=== PATIENT | female | born 1995 | race Caucasian/White ===

== ENCOUNTER 2017-06-02 16:37 | Emergency (ER) | payer BC ==
--- NOTE | 2017-06-02 17:09 | ED ---
Extremity Problem HPI - General Chief complaint: Extremity Problem,Nontraumatic Stated complaint: Left Sided Numbness Time Seen by Provider: 06/02/17 16:57 Source: patient, RN notes reviewed, old records reviewed Mode of arrival: ambulatory Limitations: no limitations - History of Present Illness Initial comments: this patient is a 21-year-old female presents emergency room today chief complaint of left-sided numbness sensation over her entire body. She states that she was eating lunch and the sensation started in her hands. She reports that then traveled to her mouth, oral arm, chest and leg. She states that the numbness sensation is diminishing in her leg at this time but continues to feel shaky and have the sensation in her arms chest and face. Patient states that she can feel me touch her. She reports she feels shaky. Has history of hypoglycemia. Surgical history includes appendectomy and adenoidectomy. Patient states that she is on no current medications at this time. Denies any chance of as she states that she has a . Patient reports that she has no recent head injury. She denies any headache headache or neck pain, chest pain, shortness of breath, vomiting, abdominal pain. She does feel nauseated. - Related Data Home Medications Medication Instructions Recorded Confirmed Aspirin/Acetaminophen/Caffeine 2 tab PO BID PRN 06/03/17 06/03/17 [Excedrin Migraine Caplet] Allergies Allergy/AdvReac Type Severity Reaction Status Date / Time No Known Allergies Allergy Verified 06/03/17 16:45 Review of Systems ROS Statement: Those systems with pertinent positive or pertinent negative responses have been documented in the HPI. ROS Other: All systems not noted in ROS Statement are negative. Past Medical History Past Medical History: Asthma Additional Past Medical History / Comment(s): hypoglycemia History of Any Multi-Drug Resistant Organisms: None Reported Past Surgical History: Adenoidectomy, Appendectomy, Ear Surgery Additional Past Surgical History / Comment(s): ear tubes Past Psychological History: Anxiety Smoking Status: Current every day smoker Past Alcohol Use History: Occasional Past Drug Use History: None Reported General Exam - General Exam Comments Initial Comments: this patient is a 21-year-old female. No significant distress. Limitations: no limitations General appearance: alert, in no apparent distress Head exam: Present: atraumatic, normocephalic, normal inspection Eye exam: Present: normal appearance, PERRL, EOMI. Absent: scleral icterus, conjunctival injection, periorbital swelling ENT exam: Present: normal exam, mucous membranes moist Neck exam: Present: normal inspection. Absent: tenderness, meningismus, lymphadenopathy Respiratory exam: Present: normal lung sounds bilaterally. Absent: respiratory distress, wheezes, rales, rhonchi, stridor Cardiovascular Exam: Present: regular rate, normal rhythm, normal heart sounds. Absent: systolic murmur, diastolic murmur, rubs, gallop, clicks GI/Abdominal exam: Present: soft, normal bowel sounds. Absent: distended, tenderness, guarding, rebound, rigid Extremities exam: Present: normal inspection, full ROM, normal capillary refill. Absent: tenderness, pedal edema, joint swelling, calf tenderness Back exam: Present: normal inspection Neurological exam: Present: alert, oriented X3, CN II-XII intact Expanded Patient oriented to: Present: person, place, time Speech: Present: fluid speech Cranial nerves: EOM's Intact: Normal, Facial Sensation: Normal Cerebellar function: Finger to Nose: Normal Upper motor neuron: Pronator Drift: Normal Sensory exam: Upper Extremity Light Touch: Normal, Lower Extremity Light Touch: Normal Motor strength exam: RUE: 5, LUE: 5, RLE: 5, LLE: 5 Eye Response: (4) open spontaneously Motor Response: (6) obeys commands Verbal Response: (5) oriented [place] Total: 15 Psychiatric exam: Present: normal affect, normal mood Skin exam: Present: warm, dry, intact, normal color. Absent: rash Course Vital Signs 06/02/17 06/02/17 06/02/17 16:41 17:27 19:04 Temperature 98.1 F 97.2 F L Pulse Rate 84 82 92 Respiratory 20 18 18 Rate Blood Pressure 134/85 122/76 121/76 O2 Sat by Pulse 100 96 99 Oximetry Medical Decision Making - Medical Decision Making this patient is a 21-year-old female presents emergency room today chief complaint of left-sided numbness sensation over her entire body. Patient has no focal neurological deficits. SHe can feel me touch her. She was given work up and all labs were reviewed and normal, normal CT. Normal EKG. She had mild decrease in blood sugar at 70. Given orange juice. Patient informed that I have direct cause for her paresthesias at this time. Disucssed follow up with PCP and neurology. All questions answered and return parameters discussed. - Lab Data Result diagrams: 06/02/17 17:11 06/02/17 17:11 Lab Results 06/02/17 06/02/17 06/02/17 Range/Units 17:11 17:11 17:11 WBC 7.6 (4.0-11.0) k/uL RBC 4.80 (3.80-5.40) m/uL Hgb 15.0 (11.4-16.0) gm/dL Hct 45.3 (34.0-46.0) % MCV 94.2 (80.0-100.0) fL MCH 31.3 (25.0-35.0) pg MCHC 33.2 (31.0-37.0) g/dL RDW 12.4 (11.5-15.5) % Plt Count 248 (150-450) k/uL Neutrophils % 58 % Lymphocytes % 29 % Monocytes % 6 % Eosinophils % 5 % Basophils % 1 % Neutrophils # 4.4 (1.3-7.7) k/uL Lymphocytes # 2.2 (1.0-4.8) k/uL Monocytes # 0.4 (0-1.0) k/uL Eosinophils # 0.4 (0-0.7) k/uL Basophils # 0.1 (0-0.2) k/uL PT (9.0-12.0) sec INR (<1.2) APTT (22.0-30.0) sec Sodium (137-145) mmol/L Potassium (3.5-5.1) mmol/L Chloride (98-107) mmol/L Carbon Dioxide (22-30) mmol/L Anion Gap mmol/L BUN (7-17) mg/dL Creatinine (0.52-1.04) mg/dL Est GFR (MDRD) Af Amer (>60 ml/min/1.73 sqM) Est GFR (MDRD) Non-Af (>60 ml/min/1.73 sqM) Glucose (74-99) mg/dL POC Glucose (mg/dL) (75-99) mg/dL POC Glu Floor Person ID Estimated Ave Glu mg/dL 91 Hemoglobin A1c 4.8 (4.0-6.0) % Calcium (8.4-10.2) mg/dL Total Bilirubin (0.2-1.3) mg/dL AST (14-36) U/L ALT (9-52) U/L Alkaline Phosphatase (38-126) U/L Total Creatine Kinase 64 (30-135) U/L CK-MB (CK-2) <0.2 (0.0-2.4) ng/mL CK-MB (CK-2) Rel Index Troponin I <0.012 (0.000-0.034) ng/mL Total Protein (6.3-8.2) g/dL Albumin (3.5-5.0) g/dL Urine Color Urine Appearance (Clear) Urine pH (5.0-8.0) Ur Specific [place] (1.001-1.035) Urine Protein (Negative) Urine Glucose (UA) (Negative) Urine Ketones (Negative) Urine Blood (Negative) Urine Nitrite (Negative) Urine Bilirubin (Negative) Urine Urobilinogen (<2.0) mg/dL Ur Leukocyte Esterase (Negative) Urine HCG, Qual (Not Detectd) 06/02/17 06/02/17 06/02/17 Range/Units 17:11 17:11 17:26 WBC (4.0-11.0) k/uL RBC (3.80-5.40) m/uL Hgb (11.4-16.0) gm/dL Hct (34.0-46.0) % MCV (80.0-100.0) fL MCH (25.0-35.0) pg MCHC (31.0-37.0) g/dL RDW (11.5-15.5) % Plt Count (150-450) k/uL Neutrophils % % Lymphocytes % % Monocytes % % Eosinophils % % Basophils % % Neutrophils # (1.3-7.7) k/uL Lymphocytes # (1.0-4.8) k/uL Monocytes # (0-1.0) k/uL Eosinophils # (0-0.7) k/uL Basophils # (0-0.2) k/uL PT 10.7 (9.0-12.0) sec INR 1.1 (<1.2) APTT 25.3 (22.0-30.0) sec Sodium 142 (137-145) mmol/L Potassium 4.2 (3.5-5.1) mmol/L Chloride 104 (98-107) mmol/L Carbon Dioxide 27 (22-30) mmol/L Anion Gap 11 mmol/L BUN 14 (7-17) mg/dL Creatinine 0.80 (0.52-1.04) mg/dL Est GFR (MDRD) Af Amer >60 (>60 ml/min/1.73 sqM) Est GFR (MDRD) Non-Af >60 (>60 ml/min/1.73 sqM) Glucose 77 (74-99) mg/dL POC Glucose (mg/dL) 77 (75-99) mg/dL POC Glu Floor Person ID Richa James Estimated Ave Glu mg/dL Hemoglobin A1c (4.0-6.0) % Calcium 9.7 (8.4-10.2) mg/dL Total Bilirubin 0.6 (0.2-1.3) mg/dL AST 20 (14-36) U/L ALT 21 (9-52) U/L Alkaline Phosphatase 59 (38-126) U/L Total Creatine Kinase (30-135) U/L CK-MB (CK-2) (0.0-2.4) ng/mL CK-MB (CK-2) Rel Index Troponin I (0.000-0.034) ng/mL Total Protein 7.2 (6.3-8.2) g/dL Albumin 4.2 (3.5-5.0) g/dL Urine Color Urine Appearance (Clear) Urine pH (5.0-8.0) Ur Specific [place] (1.001-1.035) Urine Protein (Negative) Urine Glucose (UA) (Negative) Urine Ketones (Negative) Urine Blood (Negative) Urine Nitrite (Negative) Urine Bilirubin (Negative) Urine Urobilinogen (<2.0) mg/dL Ur Leukocyte Esterase (Negative) Urine HCG, Qual (Not Detectd) 06/02/17 06/02/17 Range/Units 18:40 18:40 WBC (4.0-11.0) k/uL RBC (3.80-5.40) m/uL Hgb (11.4-16.0) gm/dL Hct (34.0-46.0) % MCV (80.0-100.0) fL MCH (25.0-35.0) pg MCHC (31.0-37.0) g/dL RDW (11.5-15.5) % Plt Count (150-450) k/uL Neutrophils % % Lymphocytes % % Monocytes % % Eosinophils % % Basophils % % Neutrophils # (1.3-7.7) k/uL Lymphocytes # (1.0-4.8) k/uL Monocytes # (0-1.0) k/uL Eosinophils # (0-0.7) k/uL Basophils # (0-0.2) k/uL PT (9.0-12.0) sec INR (<1.2) APTT (22.0-30.0) sec Sodium (137-145) mmol/L Potassium (3.5-5.1) mmol/L Chloride (98-107) mmol/L Carbon Dioxide (22-30) mmol/L Anion Gap mmol/L BUN (7-17) mg/dL Creatinine (0.52-1.04) mg/dL Est GFR (MDRD) Af Amer (>60 ml/min/1.73 sqM) Est GFR (MDRD) Non-Af (>60 ml/min/1.73 sqM) Glucose (74-99) mg/dL POC Glucose (mg/dL) (75-99) mg/dL POC Glu Floor Person ID Estimated Ave Glu mg/dL Hemoglobin A1c (4.0-6.0) % Calcium (8.4-10.2) mg/dL Total Bilirubin (0.2-1.3) mg/dL AST (14-36) U/L ALT (9-52) U/L Alkaline Phosphatase (38-126) U/L Total Creatine Kinase (30-135) U/L CK-MB (CK-2) (0.0-2.4) ng/mL CK-MB (CK-2) Rel Index Troponin I (0.000-0.034) ng/mL Total Protein (6.3-8.2) g/dL Albumin (3.5-5.0) g/dL Urine Color Light Yellow Urine Appearance Clear (Clear) Urine pH 7.0 (5.0-8.0) Ur Specific [place] 1.013 (1.001-1.035) Urine Protein Negative (Negative) Urine Glucose (UA) Negative (Negative) Urine Ketones Negative (Negative) Urine Blood Negative (Negative) Urine Nitrite Negative (Negative) Urine Bilirubin Negative (Negative) Urine Urobilinogen <2.0 (<2.0) mg/dL Ur Leukocyte Esterase Negative (Negative) Urine HCG, Qual Not Detected (Not Detectd) 06/02/17 18:57 EKG shows normal sinus rhythm. Normal EKG noted. Ventricular rate 74 bpm. Once and 6 most seconds. QS duration 84 ms. QT QTc is 370/419 ms. No evidence of ST elevation or T-wave inversions. No evidence of atrial or ventricular arrhythmias. - Radiology Data Radiology results: report reviewed CXR is normal, CT brain is normal. Disposition Clinical Impression: Paresthesia Disposition: HOME SELF-CARE Condition: Good Instructions: Paresthesia (ED) Additional Instructions: Patient advised to follow-up with primary care physician and neurology. Return to the emergency department if any alarming signs or symptoms occur. Referrals: None,Stated [Primary Care Provider] - 1-2 days Indiana Roman MD [STAFF PHYSICIAN] - 1-2 days Ector Edmond MD [STAFF PHYSICIAN] - 1-2 days Time of Disposition: 19:41
[2017-06-02] MEDS ORDERED: SODIUM CHLORIDE 0.9% 1,000 ML IV STA (17:10)
[2017-06-02] MEDS ORDERED: LORazepam 2 MG/ML INJ IV STA (17:12)
[2017-06-02 17:26] LABS: Basophils # (A) 0.1 k/uL (0-0.2); Basophils % (A) 1 %; Eosinophils # (A) 0.4 k/uL (0-0.7); Eosinophils % (A) 5 %; HCT 45.3 % (34.0-46.0); Lymphocytes # (A) 2.2 k/uL (1.0-4.8); Lymphocytes % (A) 29 %; MCH 31.3 pg (25.0-35.0); MCHC 33.2 g/dL (31.0-37.0); MCV 94.2 fL (80.0-100.0); Mean Platelet Volume 8.1; Monocytes # (A) 0.4 k/uL (0-1.0); Monocytes % (A) 6 %; Neutrophils # (A) 4.4 k/uL (1.3-7.7); Neutrophils % (A) 58 %; Platelet Count 248 k/uL (150-450); RDW 12.4 % (11.5-15.5); WBC 7.6 k/uL (4.0-11.0)
[2017-06-02 17:28] VITALS: RESP 18
[2017-06-02 17:28] LABS: Glucose,Whole Blood 77 mg/dL (75-99)
[2017-06-02 17:36] LABS: INR 1.1 (<1.2); Partial Thromboplastin Time 25.3 sec (22.0-30.0); Prothrombin Time 10.7 sec (9.0-12.0)
[2017-06-02 17:38] LABS: ALT 21 U/L (9-52); AST 20 U/L (14-36); Albumin 4.2 g/dL (3.5-5.0); Alkaline Phosphatase 59 U/L (38-126); Anion Gap 11 mmol/L; Blood Urea Nitrogen 14 mg/dL (7-17); Calcium 9.7 mg/dL (8.4-10.2); Carbon Dioxide 27 mmol/L (22-30); Chloride 104 mmol/L (98-107); Glucose 77 mg/dL (74-99); Potassium 4.2 mmol/L (3.5-5.1); Sodium 142 mmol/L (137-145); Total Bilirubin 0.6 mg/dL (0.2-1.3); Total Protein 7.2 g/dL (6.3-8.2)
[2017-06-02 17:50] LABS: Creatine Kinase 64 U/L (30-135)
[2017-06-02 18:03] LABS: Creatine Kinase MB <0.2 ng/mL (0.0-2.4); Troponin I <0.012 ng/mL (0.000-0.034)
--- NOTE | 2017-06-02 19:01 | CT ---
EXAMINATION TYPE: CT brain wo con DATE OF EXAM: 06/02/2017 COMPARISON: NONE INDICATION: Patient complains of left side numbness. DLP: 782.6 mGycm, Automated exposure control for dose reduction was used. CONTRAST: None CT of the brain is performed utilizing 3 mm thick sections through the posterior fossa and 3 mm thick sections through the remaining calvarium. Study is performed within 24 hours of arrival to the hosp ital. No abnormal hyperdensity is present to suggest an acute intracranial hemorrhage. No mass lesion is evident. No acute infarcts are evident. Ventricles and sulci are appropriate for the patient age. Paranasal sinuses and mastoid air cells within the [id number] are clear. IMPRESSIONS: 1. Normal CT Brain
--- NOTE | 2017-06-02 19:02 | XR ---
EXAMINATION TYPE: XR chest 2V DATE OF EXAM: 06/02/2017 COMPARISON: NONE INDICATION: Left-sided numbness TECHNIQUE: Frontal and lateral views of the chest are obtained. FINDINGS: The heart size is normal. The pulmonary vasculature is normal. The lungs are clear. EKG leads overlie the chest. Nipple piercings are present bilaterally. IMPRESSION: 1. No acute pulmonary process.
[2017-06-02 19:05] VITALS: BP 121/76; PULSE 92; TEMP 97.2
[2017-06-02 19:31] LABS: Appearance,Urine Clear (Clear); Bilirubin,Urine Negative (Negative); Blood,Urine Negative (Negative); Color,Urine Light Yellow; Glucose,Urine (UA) Negative (Negative); Ketones,Urine Negative (Negative); Leukocyte Esterase,Urine Negative (Negative); Nitrite,Urine Negative (Negative); Protein,Urine Negative (Negative); Specific Gravity,Urine 1.013 (1.001-1.035); Urobilinogen,Urine <2.0 mg/dL (<2.0)
[2017-06-02 23:55] LABS: Hemoglobin A1C 4.8 % (4.0-6.0)
== END 2017-06-02 19:58 | disposition home or self-care (01) ==
LOC: EC 16:37
DX: R20.2 Paresthesia of skin (principal); R11.0 Nausea; F17.200 Nicotine dependence, unspecified, uncomplicated
CPT/HCPCS: 36415; 93005; 80053; 82550; 82553; 84484; 85025; 85610; 85730; 81003; 81025; 83036; 71046; 70450; 99285; 96374; 96361 ×3; J2060

== ENCOUNTER 2017-06-03 14:22 | Emergency (ER) | payer BC ==
[2017-06-03] MEDS ORDERED: METOCLOPRAMIDE 5 MG/ML 2 ML VIAL IVP STA (17:05)
[2017-06-03] MEDS ORDERED: diphenhydrAMINE 50 MG/ML 1 ML VIAL IVP STA (17:05)
[2017-06-03] MEDS ORDERED: SODIUM CHLORIDE 0.9% 1,000 ML IV STA (17:05)
[2017-06-03] MEDS ORDERED: DEXAMETHASONE SOD PHOSPHATE 10 MG/ML 1 ML VIAL IV STA (17:05)
--- NOTE | 2017-06-03 17:16 | ED ---
Headache HPI - General Chief Complaint: Headache Stated Complaint: headaches/trouble speaking/memory problems-revisit Time Seen by Provider: 06/03/17 16:48 Source: patient, family (Mother, boyfriend) Mode of arrival: ambulatory Limitations: no limitations - History of Present Illness Initial Comments: Patient presents with headache. Patient was seen in the ER yesterday for decreased sensation across most of her body, worse on the left side. Patient states she had experiencing headaches daily for the past one month. Mom notes her as well as patient's older sister both have a history of bad migraine headaches. Patient states she regular gets headaches which typically resolved with Pain. Patient states she had a headache for the past 2 hours today, took 2 Excedrin Migraine pills which almost completely resolved headache. Patient states she has experienced tingling and decreased sensation that started in her mouth, spread across her chest and legs, and then to the left side of her body. Patient states today with symptoms his having trouble remembering what shampoo or conditioner to use, having trouble seeing when using her cell phone. Patient denies sudden onset thunderclap headache, denies neck pain. Patient had CT of the head yesterday that was negative. Blood work yesterday was unremarkable, test was negative. Patient denies recent illness, fevers, chills, URI symptoms. +vomting x 1 today 2/2 REN. Complaint: headache - Related Data Home Medications Medication Instructions Recorded Confirmed Aspirin/Acetaminophen/Caffeine 2 tab PO BID PRN 06/03/17 06/03/17 [Excedrin Migraine Caplet] Allergies Allergy/AdvReac Type Severity Reaction Status Date / Time No Known Allergies Allergy Verified 06/03/17 16:45 Review of Systems ROS Statement: Those systems with pertinent positive or pertinent negative responses have been documented in the HPI. ROS Other: All systems not noted in ROS Statement are negative. Constitutional: Denies: fever, chills Eyes: Reports: vision change. Denies: eye pain ENT: Denies: ear pain, throat pain, hearing loss, congestion Respiratory: Denies: cough, dyspnea Cardiovascular: Denies: chest pain, syncope Endocrine: Denies: fatigue Gastrointestinal: Reports: nausea, vomiting. Denies: abdominal pain Genitourinary: Denies: dysuria, frequency Musculoskeletal: Denies: back pain Skin: Denies: rash, change in color Neurological: Reports: headache, paresthesias. Denies: weakness, numbness, vertigo Past Medical History Past Medical History: Asthma Additional Past Medical History / Comment(s): hypoglycemia, headaches. History of Any Multi-Drug Resistant Organisms: None Reported Past Surgical History: Adenoidectomy, Appendectomy, Ear Surgery Additional Past Surgical History / Comment(s): ear tubes Past Psychological History: Anxiety Smoking Status: Current every day smoker Past Alcohol Use History: Occasional Past Drug Use History: None Reported General Exam - General Exam Comments Initial Comments: Sitting up in bed. No acute distress. Well-groomed well-dressed. Well- appearing. Does not appear in pain. Lights on room, conversing normally. Calm , pleasant. Limitations: no limitations General appearance: alert, in no apparent distress Head exam: Present: atraumatic, normocephalic Eye exam: Present: normal appearance, PERRL, EOMI. Absent: scleral icterus, conjunctival injection, nystagmus, periorbital swelling, periorbital tenderness ENT exam: Present: normal exam, mucous membranes moist Neck exam: Present: normal inspection, full ROM. Absent: tenderness, meningismus, lymphadenopathy Respiratory exam: Present: normal lung sounds bilaterally. Absent: respiratory distress, wheezes, rales, rhonchi, stridor Cardiovascular Exam: Present: regular rate, normal rhythm GI/Abdominal exam: Present: soft. Absent: distended, tenderness, guarding, rebound Extremities exam: Present: normal inspection Neurological exam: Present: alert, oriented X3, CN II-XII intact, normal gait, other (Fingers to nose coronary bilaterally. [id number] coronary bilaterally. Pronator drift negative bilaterally. Pupils equal and reactive bilaterally. No focal neuro deficits on exam. Muscle strength 5 out of 5 in all extremities. Sensation is intact in all extremities.). Absent: motor sensory deficit Psychiatric exam: Present: normal affect, normal mood Skin exam: Present: warm, dry, intact, normal color. Absent: rash Course Vital Signs 06/03/17 14:50 Temperature 98.4 F Pulse Rate 83 Respiratory 18 Rate Blood Pressure 130/86 O2 Sat by Pulse 100 Oximetry Medical Decision Making - Medical Decision Making Patient had no significant abnormalities on lab workup from yesterday. CT head negative yesterday. Patient's symptoms and was completely resolved at this time, after taking Excedrin Migraine. Patient's symptoms may be secondary to complex migraine, given family history. Discussion with patient and mother regarding her symptoms, patient did not have sudden onset thunderclap headache that is worse headache of her life, symptoms have been recurrent every day for one month, doubt SAH/aneurysm/sentinel bleeds. Patient has no infectious symptoms, well-appearing on exam, do not believe patient has meningitis. Discussion with patient and mother regarding risks benefits of lumbar puncture, as CT head was negative, lumbar puncture could be done to rule out bleeding, infection, increased intracranial pressure, patient mother declined. Patient wishes to pursue migraine cocktail medications at this time, agrees with no other workup at this time. Patient was referred to neurologist after ER visit yesterday, states he spoke with officer told them they're trying to get an appointment scheduled for next week. Mother states that she and patient's older sister are both on Topamax and other migraine medications. 17:56 RN administering meds. Patient states feeling better after medications. Was comfortable going home. Discussed continuing Excedrin Migraine medication as needed at home. Follow neurologist. Patient continues to decline lumbar puncture. Return to ER for new or worsening symptoms. Patient and mother understand and agree. We'll discharge home at this time. Disposition Clinical Impression: Paresthesia, Headache Disposition: HOME SELF-CARE Condition: Good Instructions: Acute Headache (ED), Paresthesia (ED) Additional Instructions: Follow-up with neurologist that you're referred to yesterday. Return to ER for new or worsening symptoms. Referrals: Rivas Loving MD [STAFF PHYSICIAN] - 1-2 days Ector Edmond MD [STAFF PHYSICIAN] - 1-2 days
[2017-06-03 18:55] VITALS: BP 137/77; PULSE 78; RESP 16; TEMP 98
== END 2017-06-03 18:50 | disposition home or self-care (01) ==
LOC: EC 14:22
DX: R20.2 Paresthesia of skin (principal); R51 Headache; F17.200 Nicotine dependence, unspecified, uncomplicated; Z82.0 Family history of epilepsy and other diseases of the nervous system
CPT/HCPCS: 99283; 96374; 96375 ×2; 96361; J1200; J1100; J2765

== ENCOUNTER → 2017-06-17 | Outpatient (CLI) | payer BC ==
--- NOTE | 2017-06-17 22:28 | MR ---
MR brain without contrast HISTORY: Headaches, left-sided numbness Multiplanar multisequence imaging through the brain Correlation CT brain 06/02/2017 There is no restricted diffusion. There is no hemorrhage or hydrocephalus. There are normal vascular flow voids. Brain signal is maintained. Inflammatory change noted in the right maxillary sinus greate r than left with possible mucus retention cyst on the right, ethmoid air cells, there is inflammatory signal in the temporal bone on the right greater than left. Cerebellopontine angles, corpus callosum , pituitary, cervical medullary junction are normal. Orbits are normal. IMPRESSION: Sinus disease, correlate for possible mastoiditis.
== END | disposition home or self-care (01) ==
LOC: RADMRIMAIN 20:27
PROVIDERS: ATTEND Psychiatry & Neurology Neurology
DX: R20.0 Anesthesia of skin (principal)
CPT/HCPCS: 70551

== ENCOUNTER → 2017-06-18 | Outpatient (CLI) | payer BC ==
--- NOTE | 2017-06-18 19:26 | US ---
EXAMINATION TYPE: US carotid duplex BILAT DATE OF EXAM: 06/18/2017 COMPARISON: NONE CLINICAL HISTORY: 21-year-old female R20.0 Left Sided Numbness. TECHNIQUE: Carotid duplex ultrasound examination. Indirect Doppler criteria was utilized. FINDINGS: No significant atherosclerotic narrowing is seen on either side. EXAM MEASUREMENTS: RIGHT: Peak Systolic Velocity (PSV) cm/sec ----- Right CCA: 120.0 (mid: 139.87 m/s) ----- Right ICA: 84.5 ----- Right ECA: 58.1 ICA/CCA ratio: 0.7 RIGHT: End Diastole cm/sec ----- Right CCA: 21.5 (mid: 23.5 cm/s) ----- Right ICA: 23.4 ----- Right ECA: 9.8 LEFT: Peak Systolic Velocity (PSV) cm/sec ----- Left CCA: 98.3 ----- Left ICA: 77.4 ----- Left ECA: 73.6 ICA/CCA ratio: 0.8 LEFT: End Diastole cm/sec ----- Left CCA: 23.4 ----- Left ICA: 35.4 ----- Left ECA: 5.0 VERTEBRALS (direction of flow): Right Vertebral: Antegrade Left Vertebral: Antegrade Rhythm: Normal IMPRESSION: 1. No hemodynamically significant stenosis appreciated in either internal carotid artery. 2. Mildly elevated peak systolic velocities within the mid right common carotid artery but without co rresponding elevation in the end-diastolic velocity. No significant narrowing is seen. The exact etio logy of this velocity elevation is unclear. Short interval follow-up can be considered. Criteria for Assigning % of Stenosis / Diameter reduction (Estimation based on the indirect measurements of the internal carotid artery velocities (ICA PSV). 1. Normal (no stenosis)=ICA PSV < 125 cm/s: ratio < 2.0: ICA EDV<40 cm/s. 2. Less than 50% stenosis=ICA PSV < 125 cm/s: ratio < 2.0: ICA EDV<40 cm/s. 3. 50 to 69% stenosis=ICA PSV of 125 to 230 cm/s: ration 2.0 ? 4.0: ICA EDV 40-100 cm/s. 4. Greater than 70% stenosis to near occlusion= ICA PSV > 230 cm/s: ratio > 4.0: ICA EDV > 100 cm/s. 5. Near occlusion= ICA PSV velocities may be low or undetectable: variable ratio and ICA EDV. 6. Total occlusion=unable to detect flow.
--- NOTE | 2017-06-19 12:56 | ECHOF ---
Referral Reason:R20.0 Left Sided Numbness MEASUREMENTS -------- HEIGHT: 167.6 cm WEIGHT: 81.6 kg BP: 132/66 RVIDd: 3.3 cm (< 3.3) IVSd: 1.1 cm (0.6 - 1.1) LVIDd: 3.9 cm (3.9 - 5.3) LVPWd: 1.0 cm (0.6 - 1.1) IVSs: 1.4 cm LVIDs: 2.7 cm LVPWs: 1.4 cm LA Diam: 3.4 cm (2.7 - 3.8) LAESV Index (A-L): 17.42 ml/m Ao Diam: 2.9 cm (2.0 - 3.7) AV Cusp: 1.9 cm (1.5 - 2.6) LA Diam: 3.2 cm (2.7 - 3.8) EPSS: 0.2 cm MV E Galo: 0.97 m/s MV DecT: 232 ms MV A Galo: 0.77 m/s MV E/A Ratio: 1.27 RAP: 5.00 mmHg RVSP: 15.91 mmHg MV EF SLOPE: 128.22 mm/s (70 - 150) MV EXCURSION: 2.14 cm (> 18.000) FINDINGS -------- Sinus rhythm. This was a technically good study. The left ventricular size is normal. Left ventricular wall thickness is normal. Overall left vent ricular systolic function is normal with, an EF between 55 - 60 %. The right ventricle is mildly enlarged. Normal LA size by volume 22+/-6 ml/m2. The right atrium is normal in size. The aortic valve is trileaflet, and appears structurally normal. No aortic stenosis or regurgitation. The mitral valve is normal. There is trace mitral regurgitation. Trace tricuspid regurgitation present. Right ventricular systolic pressure is normal at < 35 mmHg. There is no evidence of pulmonary hypertension. The pulmonic valve is normal. The aortic root size is normal. Normal inferior vena cava with normal inspiratory collapse consistent with estimated right atrial pre ssure of 5 mmHg. The pericardium is normal. There is no pericardial effusion. CONCLUSIONS -------- 1. Sinus rhythm. 2. This was a technically good study. 3. The left ventricular size is normal. 4. Left ventricular wall thickness is normal. 5. Overall left ventricular systolic function is normal with, an EF between 55 - 60 %. 6. The right ventricle is mildly enlarged. 7. Normal LA size by volume 22+/-6 ml/m2. 8. The aortic valve is trileaflet, and appears structurally normal. No aortic stenosis or regurgitati on. 9. There is trace mitral regurgitation. 10. Trace tricuspid regurgitation present. 11. Right ventricular systolic pressure is normal at < 35 mmHg. 12. There is no evidence of pulmonary hypertension. 13. The aortic root size is normal. 14. There is no pericardial effusion. MET[employer] CASKET ASSEMBLER: Leonardo Wellington RDCS
== END | disposition home or self-care (01) ==
LOC: RADECHMAIN 14:50
PROVIDERS: ATTEND Psychiatry & Neurology Neurology
DX: I51.7 Cardiomegaly (principal); R20.0 Anesthesia of skin
CPT/HCPCS: 93306; 93880

== ENCOUNTER 2018-04-30 23:23 | Emergency (ER) | payer BC ==
[2018-04-30 23:42] VITALS: RESP 16
--- NOTE | 2018-05-01 00:09 | ED ---
General Adult HPI - General Source: patient Limitations: no limitations <Jnuior Ying - Last Filed: 05/01/18 00:53> <Blake Alamo - Last Filed: 05/01/18 02:38> - General Chief complaint: Abdominal Pain Stated complaint: Fever, back pain, vaginal bleeding - Related Data Home Medications Medication Instructions Recorded Confirmed Aspirin/Acetaminophen/Caffeine 2 tab PO BID PRN 06/03/17 06/03/17 [Excedrin Migraine Caplet] Allergies Allergy/AdvReac Type Severity Reaction Status Date / Time No Known Allergies Allergy Verified 06/03/17 16:45 Review of Systems ROS Other: All systems not noted in ROS Statement are negative. <Junior Ying - Last Filed: 05/01/18 00:53> ROS Other: All systems not noted in ROS Statement are negative. <Blake Alamo - Last Filed: 05/01/18 02:38> ROS Statement: Those systems with pertinent positive or pertinent negative responses have been documented in the HPI. Past Medical History Past Medical History: Asthma Additional Past Medical History / Comment(s): hypoglycemia, headaches. History of Any Multi-Drug Resistant Organisms: None Reported Past Surgical History: Adenoidectomy, Appendectomy, Ear Surgery Additional Past Surgical History / Comment(s): ear tubes Past Psychological History: Anxiety Smoking Status: Current every day smoker Past Alcohol Use History: Occasional Past Drug Use History: None Reported <Junior Ying - Last Filed: 05/01/18 00:53> General Exam Limitations: no limitations <Junior Ying - Last Filed: 05/01/18 00:53> Vital Signs 04/30/18 23:38 Temperature 98.0 F Pulse Rate 73 Respiratory 16 Rate Blood Pressure 143/98 O2 Sat by Pulse 100 Oximetry Medical Decision Making <Junior Ying - Last Filed: 05/01/18 00:53> - Lab Data Result diagrams: 05/01/18 00:35 05/01/18 00:35 <Blake Alamo - Last Filed: 05/01/18 02:38> - Medical Decision Making Dictation was produced using Spotted dictation software. please excuse any grammatical, word or spelling errors. Chief Complaint: 22-year-old feel presents chief complaint of vaginal bleeding and pelvic cramping. History of Present Illness: 22-year-old female with no significant past medical history presents with chief complaint of abdominal bleeding and cramping. Patient states she's been having these symptoms for approximately one month she seen her CYLINDER DEVALVER who scheduled a transvaginal ultrasound for the . Patient came today because she states that she did not want to wait that long. She states she's been feeling unwell. She's been soaking through multiple tampons in the day. Patient denies any history of menstrual cramping. She does have a control implant in her left upper extremity. Denies any constitutional symptoms. The ROS documented in this emergency department record has been reviewed and confirmed by me. Those systems with pertinent positive or negative responses have been documented in the HPI. All other systems are other negative and/or noncontributory. PHYSICAL EXAM: General Impression: Alert and oriented x3, not in acute distress HEENT: Normocephalic atraumatic, extra-ocular movements intact, pupils equal and reactive to light bilaterally, mucous membranes moist. Cardiovascular: Heart regular rate and rhythm, S1&S2 audible, no murmurs, rubs or gallops Chest: Lungs clear to auscultation bilaterally, no rhonchi, no wheeze, no rales Abdomen: Bowel sounds present, abdomen soft, non-tender, non-distended, no organomegaly Musculoskeletal: Pulses present and equal in all extremities, no peripheral edema Motor: Power 5/5 bilaterally, no focal deficits noted Neurological: CN II-XII grossly intact, no focal motor or sensory deficits noted Skin: Intact with no visualized rashes Psych: Normal affect and mood ED course: 22-year-old female presents with chief complaint of vaginal bleeding and vaginal cramping for approximately one month. Vital signs upon arrival are within acceptable limits. Patient is signed out to oncoming physician, Dr. Alamo for follow-up of labs and transvaginal ultrasound. (Junior Ying) I received this patient as a sign out. I have reviewed the studies, and reevaluated with patient she is stable for outpatient management. Discussed appropriate further care and follow-up as well as return parameters. (Blake Alamo) - Lab Data Lab Results 05/01/18 05/01/18 05/01/18 Range/Units 00:25 00:25 00:35 WBC (3.8-10.6) k/uL RBC (3.80-5.40) m/uL Hgb (11.4-16.0) gm/dL Hct (34.0-46.0) % MCV (80.0-100.0) fL MCH (25.0-35.0) pg MCHC (31.0-37.0) g/dL RDW (11.5-15.5) % Plt Count (150-450) k/uL Neutrophils % % Lymphocytes % % Monocytes % % Eosinophils % % Basophils % % Neutrophils # (1.3-7.7) k/uL Lymphocytes # (1.0-4.8) k/uL Monocytes # (0-1.0) k/uL Eosinophils # (0-0.7) k/uL Basophils # (0-0.2) k/uL PT (9.0-12.0) sec INR (<1.2) Sodium 139 (137-145) mmol/L Potassium 4.5 (3.5-5.1) mmol/L Chloride 105 (98-107) mmol/L Carbon Dioxide 23 (22-30) mmol/L Anion Gap 11 mmol/L BUN 17 (7-17) mg/dL Creatinine 0.59 (0.52-1.04) mg/dL Est GFR (CKD-EPI)AfAm >90 (>60 ml/min/1.73 sqM) Est GFR (CKD-EPI)NonAf >90 (>60 ml/min/1.73 sqM) Glucose 87 (74-99) mg/dL Calcium 9.8 (8.4-10.2) mg/dL Urine Color Light Yellow Urine Appearance Cloudy H (Clear) Urine pH 5.5 (5.0-8.0) Ur Specific [place] 1.010 (1.001-1.035) Urine Protein Negative (Negative) Urine Glucose (UA) Negative (Negative) Urine Ketones Negative (Negative) Urine Blood Trace H (Negative) Urine Nitrite Negative (Negative) Urine Bilirubin Negative (Negative) Urine Urobilinogen <2.0 (<2.0) mg/dL Ur Leukocyte Esterase Negative (Negative) Urine RBC 1 (0-5) /hpf Ur Squamous Epith Cells 6 H (0-4) /hpf Urine Bacteria Rare H (None) /hpf Urine Mucus Few H (None) /hpf Urine HCG, Qual Not Detected (Not Detectd) 05/01/18 05/01/18 Range/Units 00:35 00:35 WBC 9.4 (3.8-10.6) k/uL RBC 4.76 (3.80-5.40) m/uL Hgb 14.9 (11.4-16.0) gm/dL Hct 44.9 (34.0-46.0) % MCV 94.3 (80.0-100.0) fL MCH 31.4 (25.0-35.0) pg MCHC 33.3 (31.0-37.0) g/dL RDW 12.8 (11.5-15.5) % Plt Count 262 (150-450) k/uL Neutrophils % 53 % Lymphocytes % 35 % Monocytes % 6 % Eosinophils % 3 % Basophils % 1 % Neutrophils # 5.0 (1.3-7.7) k/uL Lymphocytes # 3.3 (1.0-4.8) k/uL Monocytes # 0.6 (0-1.0) k/uL Eosinophils # 0.3 (0-0.7) k/uL Basophils # 0.1 (0-0.2) k/uL PT 15.8 H (9.0-12.0) sec INR 1.6 H (<1.2) Sodium (137-145) mmol/L Potassium (3.5-5.1) mmol/L Chloride (98-107) mmol/L Carbon Dioxide (22-30) mmol/L Anion Gap mmol/L BUN (7-17) mg/dL Creatinine (0.52-1.04) mg/dL Est GFR (CKD-EPI)AfAm (>60 ml/min/1.73 sqM) Est GFR (CKD-EPI)NonAf (>60 ml/min/1.73 sqM) Glucose (74-99) mg/dL Calcium (8.4-10.2) mg/dL Urine Color Urine Appearance (Clear) Urine pH (5.0-8.0) Ur Specific [place] (1.001-1.035) Urine Protein (Negative) Urine Glucose (UA) (Negative) Urine Ketones (Negative) Urine Blood (Negative) Urine Nitrite (Negative) Urine Bilirubin (Negative) Urine Urobilinogen (<2.0) mg/dL Ur Leukocyte Esterase (Negative) Urine RBC (0-5) /hpf Ur Squamous Epith Cells (0-4) /hpf Urine Bacteria (None) /hpf Urine Mucus (None) /hpf Urine HCG, Qual (Not Detectd) Disposition <Junior Ying - Last Filed: 05/01/18 00:53> Is patient prescribed a controlled substance at d/c from ED?: No <Blake Alamo - Last Filed: 05/01/18 02:38> Clinical Impression: Dysfunctional or functional uterine hemorrhage Disposition: HOME SELF-CARE Condition: Good Instructions: Dysfunctional Uterine Bleeding (ED) Referrals: Indiana Roman MD [Primary Care Provider] - 1-2 days Yaa Ya DO [Doctor of Osteopathic Medicine] - 1-2 days
[2018-05-01 00:53] LABS: Basophils # (A) 0.1 k/uL (0-0.2); Basophils % (A) 1 %; Eosinophils # (A) 0.3 k/uL (0-0.7); Eosinophils % (A) 3 %; HCT 44.9 % (34.0-46.0); HGB 14.9 gm/dL (11.4-16.0); Lymphocytes # (A) 3.3 k/uL (1.0-4.8); Lymphocytes % (A) 35 %; MCH 31.4 pg (25.0-35.0); MCHC 33.3 g/dL (31.0-37.0); MCV 94.3 fL (80.0-100.0); Mean Platelet Volume 8.3; Monocytes # (A) 0.6 k/uL (0-1.0); Monocytes % (A) 6 %; Neutrophils % (A) 53 %; Platelet Count 262 k/uL (150-450); RBC 4.76 m/uL (3.80-5.40); RDW 12.8 % (11.5-15.5); WBC 9.4 k/uL (3.8-10.6)
[2018-05-01 00:59] LABS: INR 1.6 (<1.2); Prothrombin Time 15.8 sec (9.0-12.0)
[2018-05-01 01:06] LABS: Anion Gap 11 mmol/L; Blood Urea Nitrogen 17 mg/dL (7-17); Calcium 9.8 mg/dL (8.4-10.2); Carbon Dioxide 23 mmol/L (22-30); Chloride 105 mmol/L (98-107); Glucose 87 mg/dL (74-99); Sodium 139 mmol/L (137-145)
--- NOTE | 2018-05-01 01:07 | US ---
EXAMINATION TYPE: US transvaginal DATE OF EXAM: 05/01/2018 COMPARISON: NONE CLINICAL HISTORY: Pain. Pain heavy bleeding and fever. TECHNIQUE: Transvaginal (TV). EXAM MEASUREMENTS: Uterus: 7.0 x 3.3 x 3.8 cm Endometrial Stripe: 0.2 cm Right Ovary: 3.5 x 2.4 x 1.9 cm Left Ovary: 2.5 x 1.9 x 1.8 cm 1. Uterus: Anteverted wnl 2. Endometrium: wnl 3. Right Ovary: Follicles seen. 4. Left Ovary: Somewhat limited due to bowel gas. Spectral, color and waveform doppler imaging shows good arterial and venous flow within the ovaries ; there is no evidence for ovarian torsion. 5. Bilateral Adnexa: wnl 6. Posterior cul-de-sac: wnl IMPRESSION: Normal uterus and endometrium. No adnexal mass or free fluid. No evidence of ovarian tors ion.
[2018-05-01 01:18] LABS: Appearance,Urine Cloudy (Clear); Bacteria,Urine Rare /hpf; Bilirubin,Urine Negative (Negative); Blood,Urine Trace (Negative); Color,Urine Light Yellow; Glucose,Urine (UA) Negative (Negative); Ketones,Urine Negative (Negative); Leukocyte Esterase,Urine Negative (Negative); Mucus,Urine Few /hpf; Nitrite,Urine Negative (Negative); PH, Urine 5.5 (5.0-8.0); Protein,Urine Negative (Negative); RBC,Urine 1 /hpf (0-5); Squamous Epithelial Cell,Urine 6 /hpf (0-4); Urobilinogen,Urine <2.0 mg/dL (<2.0)
[2018-05-01 01:53] LABS: Potassium 4.5 mmol/L (3.5-5.1)
[2018-05-01] MEDS ORDERED: ACETAMINOPHEN TAB 325 MG TAB PO STA (02:47)
[2018-05-01] MEDS ORDERED: IBUPROFEN 400 MG TAB PO STA (02:47)
[2018-05-01 03:08] VITALS: BP 116/75; PULSE 98; TEMP 98.1
== END 2018-05-01 03:06 | disposition home or self-care (01) ==
LOC: EC 23:23
DX: N93.8 Other specified abnormal uterine and vaginal bleeding (principal); F17.200 Nicotine dependence, unspecified, uncomplicated; Z90.49 Acquired absence of other specified parts of digestive tract; Z96.22 Myringotomy tube(s) status
CPT/HCPCS: 36415; 76830; 80048; 81001; 81025; 85025; 85610; 87086; 93975; 99284

== ENCOUNTER 2019-01-17 22:55 | Emergency (ER) | payer BC ==
[2019-01-17 23:05] VITALS: RESP 18; TEMP 97.8
[2019-01-17] MEDS ORDERED: ONDANSETRON 4 MG/2 ML VIAL IVP STA (23:25)
[2019-01-17] MEDS ORDERED: KETOROLAC 30 MG/ML 1 ML VIAL IVP STA (23:25)
[2019-01-17] MEDS ORDERED: SODIUM CHLORIDE 0.9% 1,000 ML IV STA (23:25)
--- NOTE | 2019-01-17 23:29 | ED ---
Female Urogenital HPI - General Chief complaint: Urogenital Stated complaint: female Time Seen by Provider: 01/17/19 23:11 Source: patient Mode of arrival: ambulatory Limitations: no limitations - History of Present Illness Initial comments: 23-year-old female patient presents to the emergency department today for evaluation of lower abdominal pain and hematuria. Patient states that she had the pain for the last several days. States she did see her primary care physician who started on antibiotic for urinary tract infection. States that she was feeling better for the last couple of days however pain started again this evening. States a couple of hours ago she started having discomfort and lower abdomen is started to worsen. States she is having low back pain with this. Denies any current hematuria but states that she is having a hard time emptying her bladder. Patient denies history of similar symptoms. Denies history of kidney stone. She denies chance of . Denies fever or chills. States she has been nauseated but has not vomited. Last period ended 2 days ago. Patient denies any recent rash, shortness breath, chest pain, numbness, tingling, dizziness, weakness, headache, visual changes, or any other complaints. Last Menstrual Period: 01/10/19 - Related Data Home Medications Medication Instructions Recorded Confirmed Aspirin/Acetaminophen/Caffeine 2 tab PO BID PRN 06/03/17 06/03/17 [Excedrin Migraine Caplet] Previous Rx's Medication Instructions Recorded Naproxen [EC-Naprosyn] 500 mg PO BID PRN #30 tablet. 01/18/19 Ondansetron [Zofran ODT] 4 mg PO Q8HR PRN #10 tab 01/18/19 Allergies Allergy/AdvReac Type Severity Reaction Status Date / Time No Known Allergies Allergy Verified 01/17/19 23:05 Review of Systems ROS Statement: Those systems with pertinent positive or pertinent negative responses have been documented in the HPI. ROS Other: All systems not noted in ROS Statement are negative. Past Medical History Past Medical History: Asthma Additional Past Medical History / Comment(s): hypoglycemia, headaches. History of Any Multi-Drug Resistant Organisms: None Reported Past Surgical History: Adenoidectomy, Appendectomy, Ear Surgery Additional Past Surgical History / Comment(s): ear tubes Past Psychological History: Anxiety Smoking Status: Current some day smoker Past Alcohol Use History: Occasional Past Drug Use History: None Reported General Exam Limitations: no limitations General appearance: alert, in no apparent distress, other (This is a well- developed, well-nourished adult female patient in no acute distress. Vital signs upon presentation are temperature 97.8F, pulse 111, respirations 18, blood pressure 136/88, pulse ox 100% on room air.) Eye exam: Present: normal appearance, PERRL, EOMI. Absent: scleral icterus, conjunctival injection, periorbital swelling ENT exam: Present: normal exam, normal oropharynx, mucous membranes moist Respiratory exam: Present: normal lung sounds bilaterally. Absent: respiratory distress, wheezes, rales, rhonchi, stridor Cardiovascular Exam: Present: regular rate, normal rhythm, normal heart sounds. Absent: systolic murmur, diastolic murmur, rubs, gallop, clicks GI/Abdominal exam: Present: soft, tenderness (Lower abdominal tenderness), normal bowel sounds. Absent: distended, guarding, rebound, rigid Neurological exam: Present: alert, oriented X3, CN II-XII intact Psychiatric exam: Present: normal affect, normal mood Skin exam: Present: warm, dry, intact, normal color. Absent: rash Course Vital Signs 01/17/19 01/18/19 23:01 01:27 Temperature 97.8 F Pulse Rate 111 H 98 Respiratory 18 18 Rate Blood Pressure 136/88 132/78 O2 Sat by Pulse 100 100 Oximetry Medical Decision Making - Medical Decision Making 23-year-old female patient presents to the emergency department today for evaluation of lower abdominal discomfort and dysuria. Physical examination revealed some suprapubic abdominal tenderness. Labs reviewed and are unremarkable. Urinalysis is negative for any sign of infection. Patient denied concern for sexually transmitted infections, declined exam or testing. CT abdomen and pelvis was obtained and showed no acute abnormality is. Did discuss findings and results with the patient. To be discharged with prescription for anti-inflammatory medication as well as nausea medication. She is instructed to follow-up with her primary care physician for recheck Saturday. Return parameters were discussed in detail. She verbalizes understanding and agrees this plan. - Lab Data Result diagrams: 01/17/19 23:47 01/17/19 23:47 Lab Results 01/17/19 01/17/19 01/18/19 Range/Units 23:47 23:47 00:13 WBC 11.5 H (3.8-10.6) k/uL RBC 4.84 (3.80-5.40) m/uL Hgb 15.7 (11.4-16.0) gm/dL Hct 45.1 (34.0-46.0) % MCV 93.2 (80.0-100.0) fL MCH 32.5 (25.0-35.0) pg MCHC 34.9 (31.0-37.0) g/dL RDW 12.7 (11.5-15.5) % Plt Count 283 (150-450) k/uL Neutrophils % 61 % Lymphocytes % 26 % Monocytes % 7 % Eosinophils % 3 % Basophils % 2 % Neutrophils # 7.0 (1.3-7.7) k/uL Lymphocytes # 3.0 (1.0-4.8) k/uL Monocytes # 0.8 (0-1.0) k/uL Eosinophils # 0.3 (0-0.7) k/uL Basophils # 0.2 (0-0.2) k/uL Sodium 139 (137-145) mmol/L Potassium 4.0 (3.5-5.1) mmol/L Chloride 104 (98-107) mmol/L Carbon Dioxide 25 (22-30) mmol/L Anion Gap 10 mmol/L BUN 12 (7-17) mg/dL Creatinine 0.74 (0.52-1.04) mg/dL Est GFR (CKD-EPI)AfAm >90 (>60 ml/min/1.73 sqM) Est GFR (CKD-EPI)NonAf >90 (>60 ml/min/1.73 sqM) Glucose 106 H (74-99) mg/dL Calcium 9.9 (8.4-10.2) mg/dL Total Bilirubin 0.6 (0.2-1.3) mg/dL AST 22 (14-36) U/L ALT 21 (9-52) U/L Alkaline Phosphatase 78 (38-126) U/L Total Protein 7.9 (6.3-8.2) g/dL Albumin 4.4 (3.5-5.0) g/dL Amylase 87 (30-110) U/L Lipase 112 (23-300) U/L Urine Color Urine Appearance (Clear) Urine pH (5.0-8.0) Ur Specific [place] (1.001-1.035) Urine Protein (Negative) Urine Glucose (UA) (Negative) Urine Ketones (Negative) Urine Blood (Negative) Urine Nitrite (Negative) Urine Bilirubin (Negative) Urine Urobilinogen (<2.0) mg/dL Ur Leukocyte Esterase (Negative) Urine RBC (0-5) /hpf Urine WBC (0-5) /hpf Ur Squamous Epith Cells (0-4) /hpf Urine Mucus (None) /hpf Urine HCG, Qual Not Detected (Not Detectd) 01/18/19 Range/Units 00:13 WBC (3.8-10.6) k/uL RBC (3.80-5.40) m/uL Hgb (11.4-16.0) gm/dL Hct (34.0-46.0) % MCV (80.0-100.0) fL MCH (25.0-35.0) pg MCHC (31.0-37.0) g/dL RDW (11.5-15.5) % Plt Count (150-450) k/uL Neutrophils % % Lymphocytes % % Monocytes % % Eosinophils % % Basophils % % Neutrophils # (1.3-7.7) k/uL Lymphocytes # (1.0-4.8) k/uL Monocytes # (0-1.0) k/uL Eosinophils # (0-0.7) k/uL Basophils # (0-0.2) k/uL Sodium (137-145) mmol/L Potassium (3.5-5.1) mmol/L Chloride (98-107) mmol/L Carbon Dioxide (22-30) mmol/L Anion Gap mmol/L BUN (7-17) mg/dL Creatinine (0.52-1.04) mg/dL Est GFR (CKD-EPI)AfAm (>60 ml/min/1.73 sqM) Est GFR (CKD-EPI)NonAf (>60 ml/min/1.73 sqM) Glucose (74-99) mg/dL Calcium (8.4-10.2) mg/dL Total Bilirubin (0.2-1.3) mg/dL AST (14-36) U/L ALT (9-52) U/L Alkaline Phosphatase (38-126) U/L Total Protein (6.3-8.2) g/dL Albumin (3.5-5.0) g/dL Amylase (30-110) U/L Lipase (23-300) U/L Urine Color Yellow Urine Appearance Cloudy H (Clear) Urine pH 6.0 (5.0-8.0) Ur Specific [place] 1.033 (1.001-1.035) Urine Protein 1+ H (Negative) Urine Glucose (UA) Negative (Negative) Urine Ketones Negative (Negative) Urine Blood Negative (Negative) Urine Nitrite Negative (Negative) Urine Bilirubin Negative (Negative) Urine Urobilinogen 6.0 (<2.0) mg/dL Ur Leukocyte Esterase Trace H (Negative) Urine RBC 1 (0-5) /hpf Urine WBC 7 H (0-5) /hpf Ur Squamous Epith Cells 24 H (0-4) /hpf Urine Mucus Many H (None) /hpf Urine HCG, Qual (Not Detectd) - Radiology Data Radiology results: report reviewed, image reviewed CT abdomen and pelvis without contrast was obtained. Report was reviewed in its entirety. Impression by Dr. Bustamante shows negative computed tomography scan abdomen and pelvis. No renal stone or obstruction. Disposition Clinical Impression: Abdominal pain Disposition: HOME SELF-CARE Condition: Good Instructions (If sedation given, give patient instructions): Abdominal Pain (ED) Additional Instructions: Increase fluids. Rest. Take medication as directed. Follow-up with her primary care physician for recheck in 1-2 days. Return to the emergency department immediately for any new, worsening, or concerning symptoms. Prescriptions: Naproxen [EC-Naprosyn] 500 mg PO BID PRN #30 tablet. PRN Reason: Pain Ondansetron [Zofran ODT] 4 mg PO Q8HR PRN #10 tab PRN Reason: Nausea Is patient prescribed a controlled substance at d/c from ED?: No Referrals: Trever Cartagena DO [Primary Care Provider] - 1-2 days Time of Disposition: 01:14
[2019-01-17 23:55] LABS: Basophils # (A) 0.2 k/uL (0-0.2); Basophils % (A) 2 %; Eosinophils # (A) 0.3 k/uL (0-0.7); Eosinophils % (A) 3 %; HCT 45.1 % (34.0-46.0); HGB 15.7 gm/dL (11.4-16.0); Lymphocytes % (A) 26 %; MCH 32.5 pg (25.0-35.0); MCHC 34.9 g/dL (31.0-37.0); MCV 93.2 fL (80.0-100.0); Mean Platelet Volume 8.2; Monocytes # (A) 0.8 k/uL (0-1.0); Monocytes % (A) 7 %; Neutrophils % (A) 61 %; Platelet Count 283 k/uL (150-450); RBC 4.84 m/uL (3.80-5.40); RDW 12.7 % (11.5-15.5); WBC 11.5 k/uL (3.8-10.6)
[2019-01-18 00:02] LABS: ALT 21 U/L (9-52); AST 22 U/L (14-36); African American GFR (CKD) >90 (>60 ml/min/1.73 sqM); Albumin 4.4 g/dL (3.5-5.0); Alkaline Phosphatase 78 U/L (38-126); Amylase 87 U/L (30-110); Anion Gap 10 mmol/L; Blood Urea Nitrogen 12 mg/dL (7-17); Calcium 9.9 mg/dL (8.4-10.2); Carbon Dioxide 25 mmol/L (22-30); Chloride 104 mmol/L (98-107); Glucose 106 mg/dL (74-99); Sodium 139 mmol/L (137-145); Total Bilirubin 0.6 mg/dL (0.2-1.3); Total Protein 7.9 g/dL (6.3-8.2)
[2019-01-18 00:24] LABS: Appearance,Urine Cloudy (Clear); Bilirubin,Urine Negative (Negative); Blood,Urine Negative (Negative); Color,Urine Yellow; Glucose,Urine (UA) Negative (Negative); Ketones,Urine Negative (Negative); Leukocyte Esterase,Urine Trace (Negative); Mucus,Urine Many /hpf; Nitrite,Urine Negative (Negative); Protein,Urine 1+ (Negative); RBC,Urine 1 /hpf (0-5); Specific Gravity,Urine 1.033 (1.001-1.035); Squamous Epithelial Cell,Urine 24 /hpf (0-4); WBC,Urine 7 /hpf (0-5)
--- NOTE | 2019-01-18 00:40 | CT ---
EXAMINATION TYPE: CT abdomen pelvis wo con DATE OF EXAM: 01/18/2019 COMPARISON: 09/04/2012 HISTORY: uti, pain CT DLP: 672 mGycm Automated exposure control for dose reduction was used. TECHNIQUE: Helical acquisition of images was performed from the lung bases through the pelvis. FINDINGS: Multiple axial sections were obtained from the diaphragm to the floor the pelvis without contrast. The lung bases are clear. There is no pleural effusion. Heart appears normal. Liver spleen pancreas gallbladder appear normal. Bile ducts are not dilated. There is large stomach. There is no adrenal mass. Kidneys have normal size. There is no hydronephrosis. There is no sign of r enal calculus. Ureters are not dilated. Bladder distends smoothly. There is no inguinal hernia. There is no free fluid in the pelvis. Uterus is anteverted. There is no sign of a pelvic mass. There are clips in the right lower quadrant probably from appendectomy. Appendix is not seen. There is no m esenteric edema. There is no ascites or free air. There is no sign of a bowel obstruction. Lumbar spi ne is intact. The bony pelvis appears intact. IMPRESSION: NEGATIVE CT SCAN ABDOMEN AND PELVIS. NO RENAL STONE OR OBSTRUCTION.
[2019-01-18] MEDS ORDERED: ONDANSETRON 4 MG ODT STARTER PACK 2 TAB BTL PO STA (01:13)
[2019-01-18] MEDS ORDERED: HYDROmorphone 0.5 MG/0.5 ML SYRINGE IVP STA (01:13)
[2019-01-18 01:28] VITALS: BP 132/78; PULSE 98
== END 2019-01-18 01:28 | disposition home or self-care (01) ==
LOC: EC 22:55
DX: R10.30 Lower abdominal pain, unspecified (principal); R30.0 Dysuria; M54.5 Low back pain; F17.200 Nicotine dependence, unspecified, uncomplicated; Z79.82 Long term (current) use of aspirin; Z87.440 Personal history of urinary (tract) infections
CPT/HCPCS: 99284; 36415; 80053; 82150; 83690; 85025; 81001; 81025; 74176; 96374; 96375; 96361; J2405; J1885

== ENCOUNTER 2020-03-05 13:10 | Emergency (ER) | payer BC ==
[2020-03-05 14:04] VITALS: TEMP 97.5
[2020-03-05] MEDS ORDERED: KETOROLAC 15 MG/ML 1 ML VIAL IVP STA (15:42)
[2020-03-05] MEDS ORDERED: METOCLOPRAMIDE 5 MG/ML 2 ML VIAL IVP STA (15:42)
[2020-03-05] MEDS ORDERED: diphenhydrAMINE 50 MG/ML 1 ML VIAL IVP STA (15:42)
[2020-03-05] MEDS ORDERED: DEXAMETHASONE SOD PHOSPHATE 10 MG/ML 1 ML VIAL IV STA (15:43)
[2020-03-05 16:22] LABS: Appearance,Urine Clear (Clear); Basophils # (A) 0.1 k/uL (0-0.2); Basophils % (A) 1 %; Bilirubin,Urine Negative (Negative); Blood,Urine Trace (Negative); Color,Urine Light Yellow; Eosinophils # (A) 0.2 k/uL (0-0.7); Eosinophils % (A) 2 %; Glucose,Urine (UA) Negative (Negative); HCT 46.8 % (34.0-46.0); HGB 16.2 gm/dL (11.4-16.0); Ketones,Urine Negative (Negative); Leukocyte Esterase,Urine Negative (Negative); Lymphocytes # (A) 2.3 k/uL (1.0-4.8); Lymphocytes % (A) 28 %; MCH 32.7 pg (25.0-35.0); MCHC 34.5 g/dL (31.0-37.0); MCV 94.7 fL (80.0-100.0); Mean Platelet Volume 9.1; Monocytes # (A) 0.4 k/uL (0-1.0); Monocytes % (A) 4 %; Mucus,Urine Rare /hpf; Neutrophils # (A) 5.3 k/uL (1.3-7.7); Neutrophils % (A) 63 %; Nitrite,Urine Negative (Negative); PH, Urine 6.5 (5.0-8.0); Platelet Count 254 k/uL (150-450); Protein,Urine Negative (Negative); RBC 4.94 m/uL (3.80-5.40); RBC,Urine 1 /hpf (0-5); RDW 12.2 % (11.5-15.5); Specific Gravity,Urine 1.014 (1.001-1.035); Squamous Epithelial Cell,Urine 2 /hpf (0-4); Urobilinogen,Urine <2.0 mg/dL (<2.0); WBC 8.3 k/uL (3.8-10.6); WBC,Urine 2 /hpf (0-5)
[2020-03-05 16:37] LABS: ALT 22 U/L (4-34); AST 23 U/L (14-36); African American GFR (CKD) >90 (>60 ml/min/1.73 sqM); Albumin 4.4 g/dL (3.5-5.0); Alkaline Phosphatase 84 U/L (38-126); Anion Gap 7 mmol/L; Blood Urea Nitrogen 13 mg/dL (7-17); Calcium 9.7 mg/dL (8.4-10.2); Carbon Dioxide 27 mmol/L (22-30); Chloride 103 mmol/L (98-107); Glucose 97 mg/dL (74-99); Non-African American GFR(CKD) >90 (>60 ml/min/1.73 sqM); Potassium 4.1 mmol/L (3.5-5.1); Sodium 137 mmol/L (137-145); Total Bilirubin 0.7 mg/dL (0.2-1.3); Total Protein 7.8 g/dL (6.3-8.2)
--- NOTE | 2020-03-05 16:55 | ED ---
General Adult HPI - General Chief complaint: Headache Stated complaint: High blood pressure Time Seen by Provider: 03/05/20 14:00 Source: patient Mode of arrival: ambulatory Limitations: no limitations - History of Present Illness Initial comments: The patient is a 24-year-old female presents emergency department with recently diagnosed hypertension. Patient states her primary care physician placed her on a water pill approximately 3 weeks ago for persistent high blood pressure. Patient states that she did not have a workup for high blood pressure, but was placed on antihypertensives. She has been taking her blood pressure medication as directed and checking her pressures which have persistently remained high. Patient woke this morning and had sudden onset of a migraine headache. Should associated nausea without vomiting. She noted her blood pressure was high and therefore came into the emergency room for evaluation. She denies any visual changes. No unilateral numbness or weakness. She did take her medications today denies concern for . No lower extremity swelling. No other alleviating or modifying factors - Related Data Home Medications Medication Instructions Recorded Confirmed Aspirin/Acetaminophen/Caffeine 2 tab PO BID PRN 06/03/17 06/03/17 [Excedrin Migraine Caplet] Previous Rx's Medication Instructions Recorded Naproxen [EC-Naprosyn] 500 mg PO BID PRN #30 tablet. 01/18/19 Ondansetron [Zofran ODT] 4 mg PO Q8HR PRN #10 tab 01/18/19 Allergies Allergy/AdvReac Type Severity Reaction Status Date / Time No Known Allergies Allergy Verified 03/05/20 14:04 Review of Systems ROS Statement: Those systems with pertinent positive or pertinent negative responses have been documented in the HPI. ROS Other: All systems not noted in ROS Statement are negative. Past Medical History Past Medical History: Asthma Additional Past Medical History / Comment(s): hypoglycemia, headaches. History of Any Multi-Drug Resistant Organisms: None Reported Past Surgical History: Adenoidectomy, Appendectomy, Ear Surgery Additional Past Surgical History / Comment(s): ear tubes Past Psychological History: Anxiety Past Alcohol Use History: Occasional Past Drug Use History: None Reported General Exam Limitations: no limitations General appearance: alert, in no apparent distress Head exam: Present: atraumatic, normocephalic, normal inspection Eye exam: Present: normal appearance, PERRL, EOMI. Absent: scleral icterus, conjunctival injection, periorbital swelling ENT exam: Present: normal exam, mucous membranes moist Neck exam: Present: normal inspection. Absent: tenderness, meningismus, lymphadenopathy Respiratory exam: Present: normal lung sounds bilaterally. Absent: respiratory distress, wheezes, rales, rhonchi, stridor Cardiovascular Exam: Present: regular rate, normal rhythm, normal heart sounds. Absent: systolic murmur, diastolic murmur, rubs, gallop, clicks GI/Abdominal exam: Present: soft, normal bowel sounds. Absent: distended, tenderness, guarding, rebound, rigid Extremities exam: Present: normal inspection, full ROM, normal capillary refill. Absent: tenderness, pedal edema, joint swelling, calf tenderness Back exam: Present: normal inspection Neurological exam: Present: alert, oriented X3, CN II-XII intact Psychiatric exam: Present: normal affect, normal mood Skin exam: Present: warm, dry, intact, normal color. Absent: rash Course Vital Signs 03/05/20 03/05/20 14:00 17:02 Temperature 97.5 F L Pulse Rate 89 90 Respiratory 20 18 Rate Blood Pressure 149/100 139/95 O2 Sat by Pulse 99 98 Oximetry Medical Decision Making - Medical Decision Making Upon arrival the patient is placed into room 10. A thorough history and physical exam was performed. Blood pressure was obtained and was 149/110. Repeat blood pressure demonstrated blood pressure 139/95. I did discuss performing laboratory studies and providing the patient with a migraine cocktail. Patient did agree to this. The nurse attempted to administer the medications over the patient take her mind and states that she didn't want she just wanted laboratory studies. The results are discussed the patient. I did recommend that the patient take her cough with her to her doctor's ointment. I also recommended she keep a log of her blood pressures 3 times daily. I also recommended a further workup for high blood pressure which can be done through her primary care office for which the patient understood. She was discharged home at this time. She does have a follow-up appointment with her primary care in the next week. She is to return to the emergency room and should she have any new or worsening symptoms. Patient was discharged home in stable condition - Lab Data Result diagrams: 03/05/20 15:50 03/05/20 15:50 Lab Results 03/05/20 03/05/20 03/05/20 Range/Units 15:50 15:50 15:50 WBC 8.3 (3.8-10.6) k/uL RBC 4.94 (3.80-5.40) m/uL Hgb 16.2 H (11.4-16.0) gm/dL Hct 46.8 H (34.0-46.0) % MCV 94.7 (80.0-100.0) fL MCH 32.7 (25.0-35.0) pg MCHC 34.5 (31.0-37.0) g/dL RDW 12.2 (11.5-15.5) % Plt Count 254 (150-450) k/uL MPV 9.1 Neutrophils % 63 % Lymphocytes % 28 % Monocytes % 4 % Eosinophils % 2 % Basophils % 1 % Neutrophils # 5.3 (1.3-7.7) k/uL Lymphocytes # 2.3 (1.0-4.8) k/uL Monocytes # 0.4 (0-1.0) k/uL Eosinophils # 0.2 (0-0.7) k/uL Basophils # 0.1 (0-0.2) k/uL Sodium 137 (137-145) mmol/L Potassium 4.1 (3.5-5.1) mmol/L Chloride 103 (98-107) mmol/L Carbon Dioxide 27 (22-30) mmol/L Anion Gap 7 mmol/L BUN 13 (7-17) mg/dL Creatinine 0.63 (0.52-1.04) mg/dL Est GFR (CKD-EPI)AfAm >90 (>60 ml/min/1.73 sqM) Est GFR (CKD-EPI)NonAf >90 (>60 ml/min/1.73 sqM) Glucose 97 (74-99) mg/dL Calcium 9.7 (8.4-10.2) mg/dL Total Bilirubin 0.7 (0.2-1.3) mg/dL AST 23 (14-36) U/L ALT 22 (4-34) U/L Alkaline Phosphatase 84 (38-126) U/L Total Protein 7.8 (6.3-8.2) g/dL Albumin 4.4 (3.5-5.0) g/dL TSH 1.130 (0.465-4.680) mIU/L Urine Color Light Yellow Urine Appearance Clear (Clear) Urine pH 6.5 (5.0-8.0) Ur Specific [place] 1.014 (1.001-1.035) Urine Protein Negative (Negative) Urine Glucose (UA) Negative (Negative) Urine Ketones Negative (Negative) Urine Blood Trace H (Negative) Urine Nitrite Negative (Negative) Urine Bilirubin Negative (Negative) Urine Urobilinogen <2.0 (<2.0) mg/dL Ur Leukocyte Esterase Negative (Negative) Urine RBC 1 (0-5) /hpf Urine WBC 2 (0-5) /hpf Ur Squamous Epith Cells 2 (0-4) /hpf Urine Mucus Rare H (None) /hpf Urine HCG, Qual (Not Detectd) 03/05/20 Range/Units 15:50 WBC (3.8-10.6) k/uL RBC (3.80-5.40) m/uL Hgb (11.4-16.0) gm/dL Hct (34.0-46.0) % MCV (80.0-100.0) fL MCH (25.0-35.0) pg MCHC (31.0-37.0) g/dL RDW (11.5-15.5) % Plt Count (150-450) k/uL MPV Neutrophils % % Lymphocytes % % Monocytes % % Eosinophils % % Basophils % % Neutrophils # (1.3-7.7) k/uL Lymphocytes # (1.0-4.8) k/uL Monocytes # (0-1.0) k/uL Eosinophils # (0-0.7) k/uL Basophils # (0-0.2) k/uL Sodium (137-145) mmol/L Potassium (3.5-5.1) mmol/L Chloride (98-107) mmol/L Carbon Dioxide (22-30) mmol/L Anion Gap mmol/L BUN (7-17) mg/dL Creatinine (0.52-1.04) mg/dL Est GFR (CKD-EPI)AfAm (>60 ml/min/1.73 sqM) Est GFR (CKD-EPI)NonAf (>60 ml/min/1.73 sqM) Glucose (74-99) mg/dL Calcium (8.4-10.2) mg/dL Total Bilirubin (0.2-1.3) mg/dL AST (14-36) U/L ALT (4-34) U/L Alkaline Phosphatase (38-126) U/L Total Protein (6.3-8.2) g/dL Albumin (3.5-5.0) g/dL TSH (0.465-4.680) mIU/L Urine Color Urine Appearance (Clear) Urine pH (5.0-8.0) Ur Specific [place] (1.001-1.035) Urine Protein (Negative) Urine Glucose (UA) (Negative) Urine Ketones (Negative) Urine Blood (Negative) Urine Nitrite (Negative) Urine Bilirubin (Negative) Urine Urobilinogen (<2.0) mg/dL Ur Leukocyte Esterase (Negative) Urine RBC (0-5) /hpf Urine WBC (0-5) /hpf Ur Squamous Epith Cells (0-4) /hpf Urine Mucus (None) /hpf Urine HCG, Qual Not Detected (Not Detectd) Disposition Clinical Impression: High blood pressure Disposition: HOME SELF-CARE Condition: Stable Instructions (If sedation given, give patient instructions): Acute Headache (ED), Hypertension (ED) Additional Instructions: Take your blood pressures 3 times daily. Keep a log. Take your cuff with your to your appointment. I do recommend a workup for your elevated blood pressures to include possible renal ultrasound and urine studies. Return to the emergency room for any new or worsening symptoms Is patient prescribed a controlled substance at d/c from ED?: No Referrals: Trever Cartagena DO [Primary Care Provider] - 1-2 days Time of Disposition: 16:55
[2020-03-05 17:03] VITALS: BP 139/95; PULSE 90; RESP 18
== END 2020-03-05 17:13 | disposition home or self-care (01) ==
LOC: EC 13:10
DX: I10 Essential (primary) hypertension (principal)
CPT/HCPCS: 36415; 80053; 81001; 81025; 84443; 85025; 99283

== ENCOUNTER → 2020-03-23 | Outpatient (CLI) | payer BC | END | disposition home or self-care (01) | LOC: LABWHC1 10:52 | PROVIDERS: ATTEND Family Medicine | DX: Z20.828 Contact with and (suspected) exposure to other viral communicable diseases (principal) | CPT/HCPCS: U0003; C9803 ==